=== PATIENT | male | born 1950 | race Two or more races ===

== ENCOUNTER 2025-03-15 13:43 | Inpatient (IN) | payer OTHER ==
[~2025-03-15] VITALS: Ht 170.2 cm; Wt 50.4 kg
--- NOTE | 2025-03-15 14:10 | ED.PDOC ---
HPI (NEURO) HPI Comments This is a 74 year old male BRYA presenting to the ED with chief complaint of syncopal episode/seizure like activity. EMS reports that the patient had been in [place] when he was witnessed to have had a syncopal episode along with an associated episode of "seizure-like activity," lasting 10 minutes. EMS relays that when they arrived, the patient was awake and his BG was reading 53 on scene. Patient states they provided D10 to the patient on route with his BG going up to the 200s. Patient notes he felt dizzy when in the store and that is when he had passed out. Patient denies any head injury, chest pain, SOB, numbness, weakness, tingling, nausea, vomiting, or fever. Chief Complaint: Syncope Time Seen by MD: 14:07 Reviewed Notes: Nurses Notes, Medications, Allergies Information Source: Patient Mode of Arrival: EMS Severity: Moderate Headache Severity: None Timing: Hours Duration: Minutes Prehospital treatment: None Seizure Quality: Twitching, Single Episodes Seizure Location: Generalized Onset: At rest Circumstances: Spontaneous Symptoms: Syncope Past Medical History PAST MEDICAL HISTORY: HTN Surgical History: Denies all surgeries Family History Family History: Reviewed,noncontributory to illness Social History Smoker: Non-Smoker Alcohol: Denies ETOH Use Drugs: Denies Drug Use Lives In: Home Constitutional: denies: chills, diaphoresis, fatigue, fever, malaise, sweats, weakness, others EENTM: denies: blurred vision, double vision, ear bleeding, ear discharge, ear drainage, ear pain, ear ringing, eye pain, eye redness, hearing loss, mouth pain, mouth swelling, nasal discharge, nose bleeding, nose congestion, nose pain, photophobia, tearing, throat pain, throat swelling, voice changes, others Respiratory: denies: cough, hemoptysis, orthopnea, SOB at rest, shortness of breath, SOB with excertion, stridor, wheezing, others Cardiovascular: reports: syncope; denies: chest pain, dizzy spells, diaphoresis, Dyspnea on exertion, edema, irregular heart beat, left arm pain, lightheadedness, palpitations, PND, others Gastrointestinal: denies: abdomen distended, abdominal pain, blood streaked bowels, constipated, diarrhea, dysphagia, difficulty swallowing, hematemesis, melena, nausea, poor appetite, poor fluid intake, rectal bleeding, rectal pain, vomiting, others Genitourinary: denies: burning, dysuria, flank pain, frequency, hematuria, incontinence, penile discharge, penile sore, pain, testicle pain, testicle swelling, urgency, others Neurological: reports: dizziness, seizure; denies: fainting, headache, left sided numbness, left sided weakness, numbness, paresthesia, pre-existing deficit, right sided numbness, right sided weakness, speech problems, tingling, tremors, weakness, others Musculoskeletal: denies: back pain, gout, joint pain, joint swelling, muscle pain, muscle stiffness, neck pain, others Integumetry: denies: bruises, change in color, change in hair/nails, dryness, laceration, lesions, lumps, rash, wounds, others Allergic/Immunocompromised: denies: Difficulty Healing, Frequent Infections, Hives, Itching, others Hematologic/Lymphatic: denies: anemia, blood clots, easy bleeding, easy bruising, swollen glands, others Endocrine: denies: excessive hunger, excessive sweating, excessive thirst, excessive urination, flushing, intolerance to cold, intolerance to heat, unexplained weight gain, unexplained weight loss, others Psychiatric: denies: anxiety, bipolar disorder, depression, hopeless, panic disorder, schizophrenia, sleepless, suicidal, others All Other Systems: Reviewed and Negative Physical Exam General Appearance: Moderate Distress HEENT: Normal ENT Inspection, Pharynx Normal, TMs Normal Neck: Full Range of Motion, Non-Tender, Normal, Normal Inspection Respiratory: Chest Non-Tender, Lungs Clear, No Accessory Muscle Use, No Respiratory Distress, Normal Breath Sounds Cardiovascular: No Edema, No JVD, No Murmur, No Gallop, Normal Peripheral Pulses, Regular Rate/Rhythm Breast Exam: Deferred Gastrointestinal: No Organomegaly, Non Tender, No Pulsatile Mass, Normal Bowel Sounds, Soft Genitalia: Deferred Pelvic: Deferred Rectal: Deferred Extremities: No calf tenderness, Normal capillary refill, No pedal edema Musculoskeletal : Apperance: Normal 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 Was a procedure done?: No Differential Diagnosis (SZ) Seizure: Psychogenic Seizure, CVA/TIA, Syncope, Other (Seizure) X-Ray, Labs, Meds, VS Vital Signs Date Time Temp Pulse Resp B/P (MAP) Pulse Ox O2 Delivery O2 Flow Rate FiO2 03/15/25 16:30 97.9 90 18 129/86 (100) 95 97.9 03/15/25 14:13 105 18 95 Room Air 03/15/25 14:13 98.3 105 18 131/72 (91) 95 98.3 03/15/25 14:09 110 03/15/25 13:53 98.2 102 16 156/86 (109) 9 98.2 03/15/25 13:47 110 Lab Test 03/15/25 14:16 03/15/25 14:08 Range/Units Urine Opiates Screen Neg NEGATIVE Urine Fentanyl Screen Neg NEGATIVE Urine Barbiturates Screen Neg NEGATIVE Urine Phencyclidine Screen Neg NEGATIVE Urine Amphetamines Screen Neg NEGATIVE Urine Benzodiazepines Screen Neg NEGATIVE Urine Cocaine Screen Neg NEGATIVE Urine Cannabinoids Screen Neg NEGATIVE White Blood Count 5.3 4.4-10.8 10^3/uL Red Blood Count 4.50 4.5-5.90 10^6/uL Hemoglobin 14.8 13.5-17.5 g/dL Hematocrit 42.8 41.0-53.0 % Mean Corpuscular Volume 95.2 80.0-100.0 fL Mean Corpuscular Hemoglobin 33.0 H 28.0-32.0 pg Mean Corpuscular Hemoglobin Concent 34.7 32.0-36.0 g/dL Red Cell Distribution Width 13.5 11.8-14.3 % Platelet Count 218 140-450 10^3/uL Mean Platelet Volume 7.4 6.9-10.8 fL Neutrophils (%) (Auto) 70.5 37.0-80.0 % Lymphocytes (%) (Auto) 21.0 10.0-50.0 % Monocytes (%) (Auto) 6.4 0.0-12.0 % Eosinophils (%) (Auto) 1.5 0.0-7.0 % Basophils (%) (Auto) 0.6 0.0-2.0 % Neutrophils # (Auto) 3.8 1.6-8.6 10 ^3/uL Lymphocytes # (Auto) 1.1 0.4-5.4 10 ^3/uL Monocytes # (Auto) 0.3 0-1.3 10 ^3/uL Eosinophils # (Auto) 0.1 0-0.8 10 ^3/uL Basophils # (Auto) 0 0-0.2 10 ^3/uL Nucleated Red Blood Cells 0.1 % Sodium Level 138 136-145 mmol/L Potassium Level 3.2 L 3.5-5.1 mmol/L Chloride Level 105 98-107 mmol/L Carbon Dioxide Level 25 20-31 mmol/L Anion Gap 8 5-15 Blood Urea Nitrogen 9 9-23 mg/dL Creatinine 0.88 0.700-1.30 mg/dL Glomerular Filtration Rate Calc 91 >90 mL/min BUN/Creatinine Ratio 10.2 10.0-20.0 Serum Glucose 192 H 74-106 mg/dL Calcium Level 9.5 8.7-10.4 mg/dL Plasma/Serum Blood Alcohol < 3.0 <10 mg/dL CT Head indicates: 1. No intracranial hemorrhage or mass effect. 2. [id number] chronic microvascular ischemic changes The CBC is within normal limits The chemistry panel is within normal limits The alcohol level is negative We are not sure if the patient had a seizure. It seems that the patient may have had autonomic dysfunction as well as an episode of syncope The patient's have had some diastolic dysfunction that may have caused him to have the syncope Images Reviewed?: Images reviewed and evaluated by me Time of 1ST Reevaluation: 19:15 Reevaluation 1ST: Improved Patient Education/Counseling: Diagnosis, Treatment, Prognosis Family Education/Counseling: No Family Present Additional Information Reviewed patient's previous visit(s): None The following tests were ordered, and results were reviewed by me: CBC, BMP, UDS, EKG, ETOH, CT Head Additional information was gathered from interviewing the following independent historian: EMS I reviewed and agreed with the following test results read by other provider: CT Heaa I discussed treatments and results with medical personnel and: Patient Comprehensive systems review obtained and negative except for what is stated in the HPI. Departure 1 Departure Time of Disposition: 19:18 Impression: Primary Impression: Episode of syncope Qualified Codes: R55 - Syncope and collapse Additional Impressions: Generalized weakness Diastolic heart failure Qualified Codes: I50.31 - Acute diastolic (congestive) heart failure Disposition: ADMITTED INPATIENT Admit to: Tele Condition: Fair Critical Care Note Critical Care Time?: Yes (45 min-critical care time only) Stability Stability form required: Yes Unstable for transfer: Telemetry monitoring (Telemetry monitoring required), ED Physician Assesment (Clinical assesment) Heart Score Heart Score: Heart Score Response (Comments) Value History Moderate Suspicious 1 EKG Repolarization Disturb 1 Age >65 2 Risk Factors 1 or 2 risk factors 1 Troponin Normal limit 0 Total 5 I personally scribed for LUIS WINSTON MD ([email or web address]) on 03/15/25 at 14:09. Electronically submitted by Reed Ulrich ([email or web address]). I personally scribed for LUIS WINSTON MD ([email or web address]) on 03/15/25 at 15:31. Electronically submitted by Reed Ulrich ([email or web address]). LUIS WINSTON MD Mar 15, 2025 14:09
[2025-03-15 14:16] LABS: Basophils # (auto) 0 10 ^3/uL (0-0.2); Basophils % (auto) 0.6 % (0.0-2.0); Eosinophils # (auto) 0.1 10 ^3/uL (0-0.8); Eosinophils % (auto) 1.5 % (0.0-7.0); Hematocrit 42.8 % (41.0-53.0); Hemoglobin 14.8 g/dL (13.5-17.5); Lymphocytes # (auto) 1.1 10 ^3/uL (0.4-5.4); Mean Corpuscular Hgb Conc. 34.7 g/dL (32.0-36.0); Mean Corpuscular Volume 95.2 fL (80.0-100.0); Monocytes # (auto) 0.3 10 ^3/uL (0-1.3); Monocytes % (auto) 6.4 % (0.0-12.0); Neutrophils # (auto) 3.8 10 ^3/uL (1.6-8.6); Neutrophils % (auto) 70.5 % (37.0-80.0); Nucleated Red Blood Cells % 0.1 %; Platelet Count (auto) 218 10^3/uL (140-450); Red Cell Distribution Width 13.5 % (11.8-14.3); White Blood Cell 5.3 10^3/uL (4.4-10.8)
[2025-03-15 14:33] LABS: Chloride 105 mmol/L (98-107); Sodium 138 mmol/L (136-145)
[2025-03-15 14:34] LABS: Anion Gap 8 (5-15); Calcium 9.5 mg/dL (8.7-10.4); Carbon Dioxide 25 mmol/L (20-31)
[2025-03-15 14:36] LABS: Potassium 3.2 mmol/L (3.5-5.1)
[2025-03-15 14:39] LABS: BUN/Creatinine Ratio 10.2 (10.0-20.0); Blood Urea Nitrogen 9 mg/dL (9-23)
[2025-03-15 14:40] LABS: Blood Alcohol < 3.0 mg/dL (<10); Glucose 192 mg/dL (74-106)
--- NOTE | 2025-03-15 14:53 | DVH ---
CT HEAD WITHOUT CONTRAST Indication: Possible 10 minutes seizure EXAM DATE: 03/15/2025 02:19 PM COMPARISON: None TECHNIQUE: CT of the head without intravenous contrast. RADIATION DOSE: CTDIvol: 51.12 mGy, DLP: 905.39 mGy*cm FINDINGS: There is no intracranial hemorrhage. There is no extra-axial fluid, mass, mass effect or midline shif t. The ventricles are midline and normal in size. Basilar cisterns are patent. [id number] periv entricular and subcortical white matter chronic microvascular ischemic changes. The paranasal sinuses and mastoids are well-pneumatized. Imaged portion of the orbits are unremarkabl e. IMPRESSION: 1. No intracranial hemorrhage or mass effect. 2. Bkkr-wg-[id number] chronic microvascular ischemic changes
[2025-03-15 18:09] LABS: Amphetamine Screen, Urine Neg (NEGATIVE); Barbiturate Scree,Urine Neg (NEGATIVE); Benzodiazephine Screen, Urine Neg (NEGATIVE); Cannabinoid Screen, Urine Neg (NEGATIVE); Cocaine Screen, Urine Neg (NEGATIVE); Opiate Scree,Urine Neg (NEGATIVE); Phencyclidine Screen, Urine Neg (NEGATIVE)
[2025-03-15] MEDS ORDERED: NITROGLYCERIN 0.4 MG SL TAB SL PRN (23:15)
[2025-03-15] MEDS ORDERED: ACETAMINOPHEN 325 MG TAB PO PRN (23:15)
[2025-03-15] MEDS ORDERED: DOCUSATE SOD 100 MG CAP PO PRN (23:15)
[2025-03-15] MEDS ORDERED: ONDANSETRON HCL 4 MG/2 ML VIAL IV PRN (23:15)
[2025-03-15] MEDS ORDERED: MORPHINE SULFATE INJ 2 MG/ml SYRG IV PRN ×2 (23:15)
[2025-03-15 23:35] LABS: Urine Bacteria None Seen /hpf (None Seen)
[2025-03-15] MEDS ORDERED: MORPHINE SULFATE 4 MG/ML SYR/VIAL IV PRN ×2 (23:45)
--- NOTE | 2025-03-15 23:46 | DVHHPRES ---
History of Present Illness Resident Creating Document: STANLEY DIAZ RESIDENT History of Present Illness Mr. Prasad, a 74-year-old male with a history of hypertension was brought in by ambulance after a syncopal episode with seizure-like activity lasting about 10 minutes, witnessed in a store. EMS found him alert with a blood glucose of 53, which improved to the 200s after D10 administration. The patient reported dizziness prior to the event and denied trauma or other symptoms. Differential diagnoses included psychogenic seizure, CVA/TIA, syncope, seizure disorder, and hypoglycemia. CT head showed no acute findings but did reveal chronic microvascular ischemic changes. Labs, including CBC, chemistry panel, and alcohol level, were normal. The episode may be related to autonomic or diastolic dysfunction, and the patient improved on reevaluation. Patient do not follow with a PCP. Cardiovascular: HTN Past Surgical History: None Family History: None, Other Smoke: No ALCOHOL: none Drugs: None Lives: with Family (home) Domestic Violence: Neg Review of Systems Constitutional: No: Fever, Chills, Sweats, Weakness, Malaise, Other Eyes: No: Pain, Vision change, Conjunctivae inflammation, Eyelid inflammation, Other, Redness ENT: No: Ear pain, Ear discharge, Nose pain, Nose discharge, Nose congestion, Mouth pain, Mouth swelling, Throat pain, Throat swelling, Other Respiratory: No: Cough, Dry, Shortness of breath, SOB with excertion, Wheezing, Hemoptysis, Pleuritic Pain, Sputum, Wheezing, Other Cardiovascular: No: Chest Pain, Palpitations, Orthopnea, Paroxysmal Noc. Dyspnea, Edema, Lt Headedness, Other Gastrointestinal: No: Nausea, Vomiting, Abdominal Pain, Diarrhea, Constipation, Melena, Hematochezia, Other Genitourinary: No Dysuria, No Frequency, No Incontinence, No Hematuria, No Retention, No Other Musculoskeletal: No: other, neck pain, shoulder pain, arm pain, back pain, hand pain, leg pain, foot pain Skin: No: Rash, Lesions, Jaundice, Bruising, Other Neurological: Confusion, Seizures, Other (syncopy); No: Weakness, Numbness, Inc oordination, Change in speech Allergies: Coded Allergies: NO KNOWN ALLERGIES (Unverified , 03/15/25) Medications Current Medications Medications Dose Ordered Sig/Yelitza Route Start Time Stop Time Status Last Admin Dose Admin Ondansetron HCl 4 mg Q4HP PRN IV 03/15/25 23:15 UNV Docusate Sodium 100 mg BIDPRN PRN PO 03/15/25 23:15 UNV Acetaminophen 650 mg Q6HP PRN PO 03/15/25 23:15 UNV Morphine Sulfate 2 mg Q4HPRN PRN IV 03/15/25 23:15 UNV Nitroglycerin 0.4 mg Q5MINP PRN SL 03/15/25 23:15 UNV Morphine Sulfate 2 mg Q30M PRN IV 03/15/25 23:15 UNV Exam Vital Signs Vital Signs Date Time Temp Pulse Resp B/P (MAP) Pulse Ox O2 Delivery O2 Flow Rate FiO2 03/15/25 16:30 97.9 90 18 129/86 (100) 95 97.9 03/15/25 14:13 Room Air General Appearance: Alert, Oriented X3, Cooperative, No acute distress HEENT: Atraumatic, PERRLA, EOMI, Mucous membr. moist/pink Respiratory: Clear to auscultation, Normal air movement Cardiovascular: Regular rate, Normal S1, Normal S2, No murmurs, Gallops, Rubs Abdominal: Normal bowel sounds, Soft, No tenderness, No hepatospenomegaly, No m asses Extremities: No clubbing, No cyanosis, No edema, Normal pulses, No tenderness/swelling Skin: No rashes, No breakdown, No significant lesion Neuro: Normal gait, Normal speech, Strength at 5/5 X4 ext, Normal tone, Sensation intact, Cranial nerves 3-12 NL, Reflexes 2+ Psych/Mental Status: Mental status NL, Mood NL Labs/Xrays Labs Test 03/15/25 23:31 03/15/25 14:16 03/15/25 14:08 Range/Units Urine Opiates Screen Neg NEGATIVE Urine Fentanyl Screen Neg NEGATIVE Urine Barbiturates Screen Neg NEGATIVE Urine Phencyclidine Screen Neg NEGATIVE Urine Amphetamines Screen Neg NEGATIVE Urine Benzodiazepines Screen Neg NEGATIVE Urine Cocaine Screen Neg NEGATIVE Urine Cannabinoids Screen Neg NEGATIVE White Blood Count 5.3 4.4-10.8 10^3/uL Red Blood Count 4.50 4.5-5.90 10^6/uL Hemoglobin 14.8 13.5-17.5 g/dL Hematocrit 42.8 41.0-53.0 % Mean Corpuscular Volume 95.2 80.0-100.0 fL Mean Corpuscular Hemoglobin 33.0 H 28.0-32.0 pg Mean Corpuscular Hemoglobin Concent 34.7 32.0-36.0 g/dL Red Cell Distribution Width 13.5 11.8-14.3 % Platelet Count 218 140-450 10^3/uL Mean Platelet Volume 7.4 6.9-10.8 fL Neutrophils (%) (Auto) 70.5 37.0-80.0 % Lymphocytes (%) (Auto) 21.0 10.0-50.0 % Monocytes (%) (Auto) 6.4 0.0-12.0 % Eosinophils (%) (Auto) 1.5 0.0-7.0 % Basophils (%) (Auto) 0.6 0.0-2.0 % Neutrophils # (Auto) 3.8 1.6-8.6 10 ^3/uL Lymphocytes # (Auto) 1.1 0.4-5.4 10 ^3/uL Monocytes # (Auto) 0.3 0-1.3 10 ^3/uL Eosinophils # (Auto) 0.1 0-0.8 10 ^3/uL Basophils # (Auto) 0 0-0.2 10 ^3/uL Nucleated Red Blood Cells 0.1 % Plasma/Serum Blood Alcohol < 3.0 <10 mg/dL Assessment/Plan Assessment/Plan Assessment: # Syncopal episode # seizure/seizure-like activity witnessed 10 minutes # hypoglycemic episode with a BG of 53 # mild encephalopathy, improved , likely nontoxic toxic panel negative. # essential Hypertensive # possible TIA, workup in progress. # ruled out acute hemorrhagic stroke with a NC CT # Possible autonomic dysfunction # cardiac causes of syncope, possible undetected structural /rhythm disorder # mechanical fall without signs of fracture or severe trauma # sinus tachycardia at presentation # LVH likely underlying undetected hypertensive heart disease # Medical non adherence, poor medical follow up. # Psychogenic seizure to rule out # Mild hypokalemia 3.2 Plan: # Unlikely a seizure disorder, we will wait for further evaluation and imaging along with neurology input for considering a standing Keppra dose. As needed IV Ativan for seizure cessation. # close monitoring in hospital, neuro checks, telemetry with fall precaution # NPO for now evaluated for swallow eval # IV fluid with the D5 and LR to maintain BG 140-180 mg per dL with avoid hypoglycemia # neurology consult, MRI pending, check for lactate and CK # possible TIA, aspirin and atorvastatin to continue, TTE, carotid Doppler, orthostatic vitals and differential arm blood pressure to check, CXR pending. # Wells Score for PE 1.5 low: given tachycardia and syncope D-dimer and DVT eight to rule out. Troponin to rule out cardiac risks with HbA1C, TSH and Lipid profile. # Outpatient needs close follow up with appropriate medical care with establishing care with a PCP. # Replenished with oral potassium, close follow up Code status: Full code, consult care discussed with the bedside with the 39 minutes care plan. Patient is agreeable. Patient is admitted inpatient in telemetry floor with consult pending for neurology. Discussed with Dr. Shaffer. Plan discussed with: Patient My Orders Orders - STANLEY DIAZ RESIDENT Procedure Category Date Status Time Admit ADMIT 03/15/25 Transmitted 23:10 Allergies PAWAN 03/15/25 In Process 23:10 Code Status CODE 03/15/25 Transmitted 23:10 Ondansetron Hcl PHA 03/15/25 In Process (Zofran) 23:15 Docusate Sodium PHA 03/15/25 In Process Capsule (Colace 23:15 Fall Risk Precautions PAWAN 03/15/[address] 23:10 Complete Blood Count LAB 03/16/25 Verified 04:00 Comprehensive LAB 03/16/25 Verified Metabolic Panel 04:00 Npo (Nothing By DIET 03/16/25 Transmitted Mouth) Diet Breakfast Pt Request For Service PT 03/15/25 Logged 23:10 * Swallow Request ST 03/15/25 Transmitted 23:10 Echo 2d Mode Cardiac US 03/15/25 Logged DOP 23:10 Carotid Duplx W Color US 03/15/25 Logged DOP 23:10 Condition: Fair PAWAN 03/15/25 In Process 23:10 Acetaminophen Tablet PHA 03/15/25 In Process (Tylenol Tablet) 23:15 Sequential PAWAN 03/15/25 In Process Compression Device Nitroglycerin PHA 03/15/25 In Process Sublingual (Ntrostat 23:15 Oxygen By Nasal RT 03/15/25 Transmitted Cannula 23:10 Stat Ekg For Chest PAWAN 03/15/25 In Process Pain 23:10 Notify Md Of Changes PAWAN 03/15/25 In Process From Base 23:10 Field Contractor For PAWAN 03/15/25 In Process 24 Hours 23:10 Emergency Dysrhythmia PAWAN 03/15/25 In Process Protocol 23:10 Rhythm Strips Once PAWAN 03/15/25 In Process Every Shift 23:10 Comprehensive LAB 03/15/25 In Process Metabolic Panel 23:19 Thyroid Stimulating LAB 03/15/25 In Process Hormone 23:19 Urinalysis LAB 03/15/25 In Process 23:19 Chest Xray 1 View XY 03/15/25 Logged 23:19 Orthostatic Vital ED NURSING 03/15/25 Transmitted Signs Communication Order ORDERS 03/15/25 Transmitted 23:19 D5w/Lactated Ringers PHA 03/15/25 In Process (D5wlr) 23:30 Aspirin Tablet PHA 03/15/25 In Process 23:30 Atorvastatin (Lipitor) PHA 03/15/25 In Process 23:30 Brain Head Wo Contrast MRI 03/15/25 Logged 23:23 * Neurology Consult CONS 03/15/25 Transmitted 23:23 D-Dimer LAB 03/15/25 In Process 23:26 Bilat Lower Dvt US 03/15/25 Logged 23:26 Creatine Kinase LAB 03/15/25 In Process 23:26 Lactic Acid W/ Reflex LAB 03/15/25 Logged Order 23:26 Morphine Sulfate PHA 03/15/25 In Process Injection 23:45 Morphine Sulfate PHA 03/15/25 In Process Injection 23:45 Troponin-I Hs LAB 03/15/25 Logged 23:35 Lipid Panel LAB 03/15/25 Logged 23:39 Seizure Precautions PAWAN 03/15/[address] 23:41 Seizure Precautions ED NURSING 03/15/25 Transmitted Date of Service: Mar 15, 2025 Billing Provider: MEL SHAFFER MD Common Visit Codes: 37284-[id number] INP/OBS CARE (HIGH) Secondary Visit Codes: 32717-[id number] CARE PLAN 30 MINUTES STANLEY DIAZ RESIDENT Mar 15, 2025 23:46
[2025-03-16] VITALS (8 sets, daily range): BP systolic 111–134; BP diastolic 58–89; PULSE 66–115; RESP 16–19; TEMP 97.9–98.7; O2SAT 95–99
[2025-03-16 00:05] LABS: Urine Blood Negative /uL (Negative); Urine Clarity Ex.Turbid (Clear); Urine Color Yellow (Yellow); Urine Mucus FEW (None Seen); Urine Protein, UAD TRACE (Negative); Urine Specific Gravity 1.025 (1.001-1.035); Urine Squamous Epithelial Cell None Seen /hpf (<5); Urine Urobilinogen Normal (Negative); Urine WBC 1 /HPF (0-3); Urine pH 5.5 (5.0-9.0)
[2025-03-16 00:10] LABS: Alanine Aminotransferase 15 U/L (7-40); Albumin 4.4 g/dL (3.2-4.8); Alkaline Phosphatase 93 U/L (46-116); Anion Gap 12 (5-15); Aspartate Aminotransferase 25 U/L (13-40); BUN/Creatinine Ratio 9.9 (10.0-20.0); Bilirubin, Total 0.6 mg/dL (0.2-1.0); Blood Urea Nitrogen 9 mg/dL (9-23); Calcium 9.1 mg/dL (8.7-10.4); Carbon Dioxide 22 mmol/L (20-31); Chloride 103 mmol/L (98-107); Sodium 137 mmol/L (136-145); Total Protein 7.2 g/dL (5.7-8.2)
[2025-03-16 00:12] LABS: Glucose 190 mg/dL (74-106); Potassium 3.3 mmol/L (3.5-5.1)
[2025-03-16 00:16] LABS: Triglycerides 77 mg/dL (< 150)
[2025-03-16 00:17] LABS: LDL Cholesterol 95 mg/dL (< 100)
[2025-03-16 00:18] LABS: Cholesterol 170 mg/dL (< 200); HDL Cholesterol 55 mg/dL (40-59)
--- NOTE | 2025-03-16 00:46 | DVH ---
Bilateral lower extremity venous duplex Clinical History: TACHY Comparison: None Technique: Duplex Doppler evaluation of the deep venous systems of both lower extremities from the common femora l veins to the popliteal veins including color Doppler and spectral/pulsed waveform analysis was perf ormed. Findings: RIGHT SIDE: The common femoral vein demonstrates appropriate compressibility and waveform variability. There is compressibility/patency of the great saphenous vein at the proximal thigh. The femoral vein demonstrates appropriate compressibility and waveform variability. The deep femoral vein demonstrates appropriate compressibility and waveform variability. The popliteal vein demonstrates appropriate compressibility and waveform variability. There is normal compressibility at the tibioperoneal trunk. LEFT SIDE: The common femoral vein demonstrates appropriate compressibility and waveform variability. There is compressibility/patency of the great saphenous vein at the proximal thigh. The femoral vein demonstrates appropriate compressibility and waveform variability. The deep femoral vein demonstrates appropriate compressibility and waveform variability. The popliteal vein demonstrates appropriate compressibility and waveform variability. There is normal compressibility at the tibioperoneal trunk. Impression: 1. No right or left femoropopliteal venous thrombosis.
--- NOTE | 2025-03-16 01:07 | DVH ---
CHEST RADIOGRAPH Indication: rule out aspiration or intrathoracic pathology Technique: Single frontal view of the chest was obtained Comparison: None FINDINGS: Lines and Tubes: None Lungs: Clear Pleura: No effusion. No pneumothorax. Cardiomediastinal contours: Unremarkable Bones: Unremarkable IMPRESSION: Clear lungs. Likely artifact overlying the right lower lung zone.
--- NOTE | 2025-03-16 02:46 | DVH ---
Carotid Duplex Clinical History: rule out carotid stenosis in the picture of ischemic changes Comparison: None Technique: Duplex Doppler evaluation of the extracranial carotid and vertebral arteries including color Doppler and spectral/pulsed waveform analysis was performed. Findings: RIGHT SIDE: The peak systolic velocities are 51 cm/s in the CCA, 63 cm/s in the ICA. The ICA/CCA ratio is 1.2. The external carotid artery is patent with peak systolic velocity of 44 cm/s proximally. There is appropriate antegrade flow in the right vertebral artery. LEFT SIDE: The peak systolic velocities are 46 cm/s in the CCA, 98 cm/s in the ICA. The ICA/CCA ratio is 2.1. The external carotid artery is patent with peak systolic velocity of 32 cm/s proximally. There is appropriate antegrade flow in the left vertebral artery. IMPRESSION: Less than 50% stenosis of bilateral carotid artery systems secondary to calcific plaque at the bilate ral carotid bulbs. Reference: Radiology 2003; 229:340-346 Normal ICA PSV is <125 cm/sec and no plaque or intimal thickening is visible sonographically addition al criteria include ICA/CCA PSV ratio <2.0 and ICA EDV <40 cm/sec <50% ICA stenosis ICA PSV is <125 cm/sec and plaque or intimal thickening is visible sonographically additional criteria include ICA/CCA PSV ratio <2.0 and ICA EDV <40 cm/sec 50-69% ICA stenosis ICA PSV is 125-230 cm/sec and plaque is visible sonographically additional criter ia include ICA/CCA PSV ratio of 2.0-4.0 and ICA EDV of 40-100 cm/sec 70% ICA stenosis but less than near occlusion ICA PSV is >230 cm/sec and visible plaque and luminal narrowing are seen at siegel-scale and color Doppler ultrasound (the higher the Doppler parameters lie above the threshold of 230 cm/sec, the greater the likelihood of severe disease) additional criteria include ICA/CCA PSV ratio >4 and ICA EDV >100 cm/sec
[2025-03-16] MEDS: ASPirin 81 mg TAB PO SCH (03:52)
[2025-03-16] MEDS: ATORVASTATIN 20 MG TAB PO SCH (03:53)
[2025-03-16] MEDS: POTASSIUM EFFERVESENT TAB 25 MEQ PO ONE (03:53)
[2025-03-16] MEDS: D5W/LACTATED RINGERS 1,000 ML IV ONE (03:59)
[2025-03-16 06:19] LABS: Basophils # (auto) 0 10 ^3/uL (0-0.2); Basophils % (auto) 0.7 % (0.0-2.0); Eosinophils # (auto) 0.1 10 ^3/uL (0-0.8); Eosinophils % (auto) 2.6 % (0.0-7.0); Hematocrit 41.9 % (41.0-53.0); Hemoglobin 14.9 g/dL (13.5-17.5); Lymphocytes # (auto) 1.3 10 ^3/uL (0.4-5.4); Lymphocytes % (auto) 24.4 % (10.0-50.0); Mean Corpuscular Hemoglobin 33.4 pg (28.0-32.0); Mean Corpuscular Hgb Conc. 35.5 g/dL (32.0-36.0); Monocytes # (auto) 0.5 10 ^3/uL (0-1.3); Neutrophils # (auto) 3.5 10 ^3/uL (1.6-8.6); Neutrophils % (auto) 63.3 % (37.0-80.0); Nucleated Red Blood Cells % 0.3 %; Platelet Count (auto) 211 10^3/uL (140-450); Red Blood Cells 4.46 10^6/uL (4.5-5.90); Red Cell Distribution Width 13.3 % (11.8-14.3); White Blood Cell 5.5 10^3/uL (4.4-10.8)
[2025-03-16 06:43] LABS: Alanine Aminotransferase 16 U/L (7-40); Albumin 4.3 g/dL (3.2-4.8); Alkaline Phosphatase 96 U/L (46-116); Anion Gap 8 (5-15); Aspartate Aminotransferase 24 U/L (13-40); BUN/Creatinine Ratio 13.4 (10.0-20.0); Blood Urea Nitrogen 9 mg/dL (9-23); Calcium 9.9 mg/dL (8.7-10.4); Carbon Dioxide 27 mmol/L (20-31); Chloride 106 mmol/L (98-107); Glucose 92 mg/dL (74-106); Potassium 3.6 mmol/L (3.5-5.1); Sodium 141 mmol/L (136-145); Total Protein 6.7 g/dL (5.7-8.2)
[2025-03-16 06:46] LABS: Bilirubin, Total 0.8 mg/dL (0.2-1.0)
--- NOTE | 2025-03-16 08:44 | DVH ---
MRI BRAIN HEAD WO CONTRAST INDICATION: rule out organic structural brain pathologies EXAM DATE: 03/16/2025 08:05 AM COMPARISON: None PROCEDURE: Using a 1.5 Yohana scanner, multisequence multiplanar imaging of the brain was obtained. FINDINGS: The brainshows normal morphology and signal characteristics. No abnormal T2 hyperintensity, diffusion restriction, or susceptibility hypointensity is present. The ventricles are normal in size . The midline structures are intact. The major intracranial flow voids are present. The aerated space s are normal. The orbital contents and extracranial soft tissues appear normal. IMPRESSION: Scattered nonspecific white matter changes are visualized. Otherwise unremarkable MRI findings of the brain.
--- NOTE | 2025-03-16 18:08 | DVHPN2 ---
Subjective I am assuming the care of the patient from today onwards. Patient is Beninese speaker. [facility] INTERNET AND E BUSINESS PROJECT MANAGER helped us in interpreting the Beninese. Patient is currently denies any known seizure disorder. Changes from previous H/P or p: No Changes Eyes: No Pain, No Vision change, No Conjunctivae inflammation, No Eyelid inflammation, No Other, No Redness ENT: No Ear pain, No Ear discharge, No Nose pain, No Nose discharge, No Nose congestion, No Mouth pain, No Mouth swelling, No Throat pain, No Throat swelling, No Other Cardiovascular: No Chest Pain, No Palpitations, No Orthopnea, No Paroxysmal Noc. Dyspnea, No Edema, No Lt Headedness, No Other Respiratory: No Cough, No Dry, No Shortness of breath, No SOB with excertion, No Wheezing, No Hemoptysis, No Pleuritic Pain, No Sputum, No Other Gastrointestinal: No Nausea, No Vomiting, No Abdominal Pain, No Diarrhea, No Constipation, No Melena, No Hematochezia, No Other Genitourinary: No Dysuria, No Frequency, No Incontinence, No Hematuria, No Retention, No Other Musculoskeletal: No other, No neck pain, No shoulder pain, No arm pain, No back pain, No hand pain, No leg pain, No foot pain Skin: No Rash, No Lesions, No Jaundice, No Bruising, No Other Objective Vitals Vital Signs Date Time Temp Pulse Resp B/P (MAP) Pulse Ox O2 Delivery O2 Flow Rate FiO2 03/16/25 17:00 98.4 67 18 129/81 (97) 97 98.4 03/16/25 03:18 Room Air* 0 21 Intake/Output Intake and Output 03/16/25 07:00 Intake Total 60 ml Output Total 150 ml Balance -90 ml Intake Oral 60 ml Output Urine Total 150 ml Exam HEENT pupils are reactive Neck is supple CV is S1-S2 regular rate and rhythm Respiratory are clear GI positive bowel sound Extremity no edema 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 Medications Current Medications Medications Dose Ordered Sig/Yelitza Route Start Time Stop Time Status Last Admin Dose Admin Ondansetron HCl 4 mg Q4HP PRN IV 03/15/25 23:15 Docusate Sodium 100 mg BIDPRN PRN PO 03/15/25 23:15 Acetaminophen 650 mg Q6HP PRN PO 03/15/25 23:15 Nitroglycerin 0.4 mg Q5MINP PRN SL 03/15/25 23:15 Aspirin 81 mg DAILY PO 03/15/25 23:30 03/16/25 10:22 81 MG Atorvastatin Calcium 40 mg HS PO 03/15/25 23:30 Morphine Sulfate 2 mg Q4HPRN PRN IV 03/15/25 23:45 Morphine Sulfate 2 mg Q30M PRN IV 03/15/25 23:45 Laboratory Results Laboratory Tests 03/16/25 05:28 Chemistry Test 03/15/25 23:31 03/16/25 05:28 Albumin 4.4 g/dL (3.2-4.8) 4.3 g/dL (3.2-4.8) Calcium Level 9.1 mg/dL (8.7-10.4) 9.9 mg/dL (8.7-10.4) Total Protein 7.2 g/dL (5.7-8.2) 6.7 g/dL (5.7-8.2) Coagulation Test 03/15/25 23:31 D-Dimer, Quantitative 0.49 mg/L FEU (0.0-0.49) Lipid panel Test 03/15/25 23:31 Cholesterol Level 170 mg/dL (< 200) HDL Cholesterol 55 mg/dL (40-59) Triglycerides Level 77 mg/dL (< 150) LFT Test 03/15/25 23:31 03/16/25 05:28 Alanine Aminotransferase (ALT) 15 U/L (7-40) 16 U/L (7-40) Alkaline Phosphatase 93 U/L (46-116) 96 U/L (46-116) Aspartate Amino Transferase (AST) 25 U/L (13-40) 24 U/L (13-40) Total Bilirubin 0.6 mg/dL (0.2-1.0) 0.8 mg/dL (0.2-1.0) HgA1c, TSH Test 03/15/25 23:31 Hemoglobin A1c 5.0 % A1C (<5.7) Urinalysis Test 03/15/25 14:16 Urine Color Yellow (Yellow) Urine Clarity Ex.turbid (Clear) Urine pH 5.5 (5.0-9.0) Urine Specific [place] 1.025 (1.001-1.035) Urine Protein Trace (Negative) H Urine Ketones Trace (Negative) Urine Blood Negative /uL (Negative) Urine Nitrite Negative (Negative) Urine Bilirubin Negative (Negative) Urine Urobilinogen Normal mg/dL (Negative) Urine Leukocyte Esterase Negative /uL (Negative) Urine RBC 1 /hpf (0 - 3) Urine Microscopic WBC 1 /HPF (0-3) Urine Squamous Epithelial Cells None seen /hpf (<5) Urine Bacteria None seen /hpf (None Seen) Urine Mucus Few (None Seen) Urine Glucose Normal mg/dL (Normal) Assessment/Plan Assessment/Plan 74-year-old male with a no significant past medical history besides hypertension presented to the hospital with syncope episode and questionable seizure-like activities. 1. Syncope rule out structural heart disease rule out any cardiac arrhythmia 2. Seizure-like activities. 3.0Hypoglycemia/hypoglycemic seizures 4. Hypertension 5. Rule out TIA/CVA -neurology consultation, seizure precautions. Plan discussed with: Patient, Other My Orders Orders - CHARLES CLIFFORD MD Procedure Category Date Status Time Cardiac DIET 03/16/25 Transmitted Diet-2gna,Lofat,Lochol Dinner Date of Service: Mar 16, 2025 Billing Provider: CHARLES CLIFFORD MD Common Visit Codes: [id number] INP/OBS CARE(MOD) CHARLES CLIFFORD MD Mar 16, 2025 18:08
--- NOTE | 2025-03-16 18:46 | ECG ---
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
--- NOTE | 2025-03-16 19:19 | DVHSR ---
APPROVED REPORT EXAM: Two-dimensional and M-mode echocardiogram with Doppler and color Doppler. Blood Pressure: 131/74 mmHg INDICATION Rule out structural heart disease RISK FACTORS Height: 5' 7", Weight: 140 DIMENSIONS LVDd5.0 (3.8-5.7cm)LA (2D)3.6 (1.9-4.0cm)Aortic Root3.9 (2.0-3.7cm) LVDs4.4 (2.5-4.0cm)LA (MM) (1.9-4.0cm)Aortic Cusp Exc1.9 (1.5-2.0cm) EF (%) 28.0 (55-70%)Rt. Atrium4.1 (1.9-4.0cm)Asc. Aorta cm IVSd1.0 (0.7-1.1cm)RV (D) (1.8-2.4cm) PWd1.0 (0.7-1.1cm) Mitral Valve MitralMitral Stenosis E wave0.50m/sMV Mean GR.mmHg A wave0.80m/sMV Peak GR.mmHg E/A ratio0.62D MVAcm2 Aortic Valve Aortic ValveAortic Stenosis V10.60m/Isa Mean GR.3mmHg V21.20m/Isa Peak GR.7mmHg LVOT Diameter2.5 (1.8-2.4cm)Doppler AVA2.45cm2 AI P 1/2 Przu295.07ms Pulmonic Valve V20.40m/s Conclusion MODERATE LVH AND MODERATE DEGREE LV DIASTOLIC DYSFUNCTION LV SLIGHTLY DILATED AND IS GLOBALLY HYPOKINETIC LV EF IS 30% AND IS MODERATELY REDUCED SYSTOLIC AND DIASTOLIC LV DYSFUNCTION DYSKINESIS OF IVS MODERATELY DILATED RV MODERATELY CALCIFIED AORTIC LEAFLETS MODERATE DEGREE AORTIC REGURGITATION NORMAL MV,TV AND PV NO EFFUSION
[2025-03-17] VITALS (9 sets, daily range): BP systolic 105–118; BP diastolic 63–74; PULSE 61–89; RESP 16–18; TEMP 36.8; O2SAT 95–98
--- NOTE | 2025-03-17 15:29 | DVHDS2 ---
Discharge Summary Date of Admission Mar 15, 2025 at 23:10 Date of Discharge: Mar 17, 2025 Labs/Diagnostic Data: Laboratory Results Test 03/16/25 05:28 03/15/25 23:54 03/15/25 23:35 03/15/25 23:31 White Blood Count 5.5 10^3/uL (4.4-10.8) Red Blood Count 4.46 10^6/uL (4.5-5.90) Hemoglobin 14.9 g/dL (13.5-17.5) Hematocrit 41.9 % (41.0-53.0) Mean Corpuscular Volume 94.0 fL (80.0-100.0) Mean Corpuscular Hemoglobin 33.4 pg (28.0-32.0) Mean Corpuscular Hemoglobin Concent 35.5 g/dL (32.0-36.0) Red Cell Distribution Width 13.3 % (11.8-14.3) Platelet Count 211 10^3/uL (140-450) Mean Platelet Volume 7.7 fL (6.9-10.8) Neutrophils (%) (Auto) 63.3 % (37.0-80.0) Lymphocytes (%) (Auto) 24.4 % (10.0-50.0) Monocytes (%) (Auto) 9.0 % (0.0-12.0) Eosinophils (%) (Auto) 2.6 % (0.0-7.0) Basophils (%) (Auto) 0.7 % (0.0-2.0) Neutrophils # (Auto) 3.5 10 ^3/uL (1.6-8.6) Lymphocytes # (Auto) 1.3 10 ^3/uL (0.4-5.4) Monocytes # (Auto) 0.5 10 ^3/uL (0-1.3) Eosinophils # (Auto) 0.1 10 ^3/uL (0-0.8) Basophils # (Auto) 0 10 ^3/uL (0-0.2) Nucleated Red Blood Cells 0.3 % Sodium Level 141 mmol/L (136-145) Potassium Level 3.6 mmol/L (3.5-5.1) Chloride Level 106 mmol/L (98-107) Carbon Dioxide Level 27 mmol/L (20-31) Anion Gap 8 (5-15) Blood Urea Nitrogen 9 mg/dL (9-23) Creatinine 0.67 mg/dL (0.700-1.30) Glomerular Filtration Rate Calc 99 mL/min (>90) BUN/Creatinine Ratio 13.4 (10.0-20.0) Serum Glucose 92 mg/dL (74-106) Calcium Level 9.9 mg/dL (8.7-10.4) Total Bilirubin 0.8 mg/dL (0.2-1.0) Aspartate Amino Transferase (AST) 24 U/L (13-40) Alanine Aminotransferase (ALT) 16 U/L (7-40) Alkaline Phosphatase 96 U/L (46-116) Total Protein 6.7 g/dL (5.7-8.2) Albumin 4.3 g/dL (3.2-4.8) Lactic Acid Level 1.3 mmol/L (0.4-2.0) Troponin I High Sensitivity 10 ng/L (</=54) D-Dimer, Quantitative 0.49 mg/L FEU (0.0-0.49) Hemoglobin A1c 5.0 % A1C (<5.7) Triglycerides Level 77 mg/dL (< 150) Cholesterol Level 170 mg/dL (< 200) LDL Cholesterol 95 mg/dL (< 100) HDL Cholesterol 55 mg/dL (40-59) Test 03/15/25 14:16 03/15/25 14:08 Urine Color Yellow (Yellow) Urine Clarity Ex.turbid (Clear) Urine pH 5.5 (5.0-9.0) Urine Specific [place] 1.025 (1.001-1.035) Urine Protein Trace (Negative) Urine Ketones Trace (Negative) Urine Blood Negative /uL (Negative) Urine Nitrite Negative (Negative) Urine Bilirubin Negative (Negative) Urine Urobilinogen Normal mg/dL (Negative) Urine Leukocyte Esterase Negative /uL (Negative) Urine RBC 1 /hpf (0 - 3) Urine Microscopic WBC 1 /HPF (0-3) Urine Squamous Epithelial Cells None seen /hpf (<5) Urine Bacteria None seen /hpf (None Seen) Urine Mucus Few (None Seen) Urine Glucose Normal mg/dL (Normal) Urine Opiates Screen Neg (NEGATIVE) Urine Fentanyl Screen Neg (NEGATIVE) Urine Barbiturates Screen Neg (NEGATIVE) Urine Phencyclidine Screen Neg (NEGATIVE) Urine Amphetamines Screen Neg (NEGATIVE) Urine Benzodiazepines Screen Neg (NEGATIVE) Urine Cocaine Screen Neg (NEGATIVE) Urine Cannabinoids Screen Neg (NEGATIVE) Creatine Kinase 357 U/L (46-171) Thyroid Stimulating Hormone (TSH) 1.47 uIU/mL (0.55-4.78) Plasma/Serum Blood Alcohol < 3.0 mg/dL (<10) Other Laboratory Tests 03/16/25 05:28 Final Diagnosis/Problems List 74-year-old male with a no significant past medical history besides hypertension presented to the hospital with syncope episode and questionable seizure-like activities. 1. Syncope rule out structural heart disease rule out any cardiac arrhythmia 2. Seizure-like activities. 3.0Hypoglycemia/hypoglycemic seizures 4. Hypertension 5. Rule out TIA/CVA Discharge Disposition: Home Discharge Instruct/Medications Diet: Cardiac 2g Na,low cholest Activity: See Comment Activity comment: As per recommendation from Neurology Follow Up/Referral: Follow up with PCP in 1-2 weeks Follow up with the Neurology Dr. Diaz in 1-2 weeks Medications: Resume home medications Discharge Statement: "Patient was advised to return to the ER or call 911 if any headaches, dizziness, shortness of breath, chest pain, abdominal pain, bleeding, fevers, or worsening of medical condition. Patient was counseled about treatment plan, medications, possible side effects, patientverbalized understanding. All questions were answered to the best of my ability. This discharge took greater then 30 minutes in planning, reviewing documentation, counseling the patient, and discussing with other team members." ASSESSMENT ASSESSMENT Assessment 74-year-old male with a no significant past medical history besides hypertension presented to the hospital with syncope episode and questionable seizure-like activities. 1. Syncope rule out structural heart disease rule out any cardiac arrhythmia 2. Seizure-like activities. 3.0Hypoglycemia/hypoglycemic seizures 4. Hypertension 5. Rule out TIA/CVA CHARLES CLIFFORD MD Mar 17, 2025 15:29
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
[2025-03-18] VITALS (8 sets, daily range): BP systolic 100–128; BP diastolic 68–86; PULSE 70–88; RESP 15–20; TEMP 97.3–98.1; O2SAT 92–98
[2025-03-18 10:34] LABS: Hepatitis B Surface Antigen Negative (Negative); Hepatitis C Antibody Negative (Negative)
--- NOTE | 2025-03-18 16:35 | DVHPN2 ---
Subjective I am assuming the care of the patient from today onwards. Patient is Indonesian speaker. [facility] SOLUTION ENGINEER helped us in interpreting the Indonesian. Patient is currently denies any known seizure disorder. Changes from previous H/P or p: No Changes Eyes: No Pain, No Vision change, No Conjunctivae inflammation, No Eyelid inflammation, No Other, No Redness ENT: No Ear pain, No Ear discharge, No Nose pain, No Nose discharge, No Nose congestion, No Mouth pain, No Mouth swelling, No Throat pain, No Throat swelling, No Other Cardiovascular: No Chest Pain, No Palpitations, No Orthopnea, No Paroxysmal Noc. Dyspnea, No Edema, No Lt Headedness, No Other Respiratory: No Cough, No Dry, No Shortness of breath, No SOB with excertion, No Wheezing, No Hemoptysis, No Pleuritic Pain, No Sputum, No Other Gastrointestinal: No Nausea, No Vomiting, No Abdominal Pain, No Diarrhea, No Constipation, No Melena, No Hematochezia, No Other Genitourinary: No Dysuria, No Frequency, No Incontinence, No Hematuria, No Retention, No Other Musculoskeletal: No other, No neck pain, No shoulder pain, No arm pain, No back pain, No hand pain, No leg pain, No foot pain Skin: No Rash, No Lesions, No Jaundice, No Bruising, No Other Objective Vitals Vital Signs Date Time Temp Pulse Resp B/P (MAP) Pulse Ox O2 Delivery O2 Flow Rate FiO2 03/18/25 13:00 98.1 81 16 113/73 (86) 98 98.1 03/18/25 08:00 Room Air* 0 21 Intake/Output Intake and Output 03/18/25 07:00 Intake Total 2290 ml Output Total 800 ml Balance 1490 ml Intake Oral 2290 ml Output Urine Total 800 ml # Voids 3 Exam HEENT pupils are reactive Neck is supple CV is S1-S2 regular rate and rhythm Respiratory are clear GI positive bowel sound 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 Medications Current Medications Medications Dose Ordered Sig/Yelitza Route Start Time Stop Time Status Last Admin Dose Admin Ondansetron HCl 4 mg Q4HP PRN IV 03/15/25 23:15 Docusate Sodium 100 mg BIDPRN PRN PO 03/15/25 23:15 Acetaminophen 650 mg Q6HP PRN PO 03/15/25 23:15 Nitroglycerin 0.4 mg Q5MINP PRN SL 03/15/25 23:15 Aspirin 81 mg DAILY PO 03/15/25 23:30 03/18/25 10:00 81 MG Atorvastatin Calcium 40 mg HS PO 03/15/25 23:30 03/17/25 21:38 40 MG Morphine Sulfate 2 mg Q4HPRN PRN IV 03/15/25 23:45 Morphine Sulfate 2 mg Q30M PRN IV 03/15/25 23:45 Laboratory Results Laboratory Tests 03/16/25 05:28 Urinalysis Test 03/15/25 14:16 Urine Color Yellow (Yellow) Urine Clarity Ex.turbid (Clear) Urine pH 5.5 (5.0-9.0) Urine Specific [place] 1.025 (1.001-1.035) Urine Protein Trace (Negative) H Urine Ketones Trace (Negative) Urine Blood Negative /uL (Negative) Urine Nitrite Negative (Negative) Urine Bilirubin Negative (Negative) Urine Urobilinogen Normal mg/dL (Negative) Urine Leukocyte Esterase Negative /uL (Negative) Urine RBC 1 /hpf (0 - 3) Urine Microscopic WBC 1 /HPF (0-3) Urine Squamous Epithelial Cells None seen /hpf (<5) Urine Bacteria None seen /hpf (None Seen) Urine Mucus Few (None Seen) Urine Glucose Normal mg/dL (Normal) Assessment/Plan Assessment/Plan 74-year-old male with a no significant past medical history besides hypertension presented to the hospital with syncope episode and questionable seizure-like activities. 1. Syncope rule out structural heart disease rule out any cardiac arrhythmia 2. Seizure-like activities. 3.0Hypoglycemia/hypoglycemic seizures 4. Hypertension 5. Rule out TIA/CVA -neurology consultation, seizure precautions. Plan discussed with: Patient Date of Service: Mar 17, 2025 Billing Provider: CHARLES CLIFFORD MD Common Visit Codes: [id number] INP/OBS CARE(MOD) CHARLES CLIFFORD MD Mar 18, 2025 16:35
--- NOTE | 2025-03-18 17:07 | DVHPN2 ---
Subjective I am assuming the care of the patient from today onwards. Patient is Czech speaker. [facility] [employer] helped us in interpreting the Czech. Patient is currently denies any known seizure disorder. Changes from previous H/P or p: No Changes Eyes: No Pain, No Vision change, No Conjunctivae inflammation, No Eyelid inflammation, No Other, No Redness ENT: No Ear pain, No Ear discharge, No Nose pain, No Nose discharge, No Nose congestion, No Mouth pain, No Mouth swelling, No Throat pain, No Throat swelling, No Other Cardiovascular: No Chest Pain, No Palpitations, No Orthopnea, No Paroxysmal Noc. Dyspnea, No Edema, No Lt Headedness, No Other Respiratory: No Cough, No Dry, No Shortness of breath, No SOB with excertion, No Wheezing, No Hemoptysis, No Pleuritic Pain, No Sputum, No Other Gastrointestinal: No Nausea, No Vomiting, No Abdominal Pain, No Diarrhea, No Constipation, No Melena, No Hematochezia, No Other Genitourinary: No Dysuria, No Frequency, No Incontinence, No Hematuria, No Retention, No Other Musculoskeletal: No other, No neck pain, No shoulder pain, No arm pain, No back pain, No hand pain, No leg pain, No foot pain Skin: No Rash, No Lesions, No Jaundice, No Bruising, No Other Objective Vitals Vital Signs Date Time Temp Pulse Resp B/P (MAP) Pulse Ox O2 Delivery O2 Flow Rate FiO2 03/18/25 13:00 98.1 81 16 113/73 (86) 98 98.1 03/18/25 08:00 Room Air* 0 21 Intake/Output Intake and Output 03/18/25 07:00 Intake Total 2290 ml Output Total 800 ml Balance 1490 ml Intake Oral 2290 ml Output Urine Total 800 ml # Voids 3 Exam HEENT pupils are reactive Neck is supple CV is S1-S2 regular rate and rhythm Respiratory are clear GI positive bowel sound Extremity no edema [employer] no motor deficit Medications Current Medications Medications Dose Ordered Sig/Yelitza Route Start Time Stop Time Status Last Admin Dose Admin Ondansetron HCl 4 mg Q4HP PRN IV 03/15/25 23:15 Docusate Sodium 100 mg BIDPRN PRN PO 03/15/25 23:15 Acetaminophen 650 mg Q6HP PRN PO 03/15/25 23:15 Nitroglycerin 0.4 mg Q5MINP PRN SL 03/15/25 23:15 Aspirin 81 mg DAILY PO 03/15/25 23:30 03/18/25 10:00 81 MG Atorvastatin Calcium 40 mg HS PO 03/15/25 23:30 03/17/25 21:38 40 MG Morphine Sulfate 2 mg Q4HPRN PRN IV 03/15/25 23:45 Morphine Sulfate 2 mg Q30M PRN IV 03/15/25 23:45 Laboratory Results Laboratory Tests 03/16/25 05:28 Urinalysis Test 03/15/25 14:16 Urine Color Yellow (Yellow) Urine Clarity Ex.turbid (Clear) Urine pH 5.5 (5.0-9.0) Urine Specific [place] 1.025 (1.001-1.035) Urine Protein Trace (Negative) H Urine Ketones Trace (Negative) Urine Blood Negative /uL (Negative) Urine Nitrite Negative (Negative) Urine Bilirubin Negative (Negative) Urine Urobilinogen Normal mg/dL (Negative) Urine Leukocyte Esterase Negative /uL (Negative) Urine RBC 1 /hpf (0 - 3) Urine Microscopic WBC 1 /HPF (0-3) Urine Squamous Epithelial Cells None seen /hpf (<5) Urine Bacteria None seen /hpf (None Seen) Urine Mucus Few (None Seen) Urine Glucose Normal mg/dL (Normal) Assessment/Plan Assessment/Plan 74-year-old male with a no significant past medical history besides hypertension presented to the hospital with syncope episode and questionable seizure-like activities. 1. Syncope rule out structural heart disease rule out any cardiac arrhythmia 2. Seizure-like activities. 3.Hypoglycemia/hypoglycemic seizures 4. Hypertension 5. Rule out TIA/CVA -neurology consultation appreciated, follow up EEG, seizure precautions. Plan discussed with: Patient Date of Service: Mar 18, 2025 Billing Provider: CHARLES CLIFFORD MD Common Visit Codes: [id number] INP/OBS CARE(MOD) CHARLES CLIFFORD MD Mar 18, 2025 17:07
--- NOTE | 2025-03-18 23:17 | DVHEEG2 ---
Neurology EEG Procedural Note Procedural Note EXAM DATE: 03/18/2025 REFERRING DOCTOR: Dr. Gordon TECHNIQUE: Eighteen channels of EEG, 2 channels of EOG, and 1 channel of EKG were recorded using the International 10/20 system. CLINICAL DATA: The patient was referred for an EEG evaluation for the evidence of seizure disorder. MEDICATIONS: See chart BACKGROUND ACTIVITY: While the patient was awake, the background activity consisted of well regulated 9 Hz rhythmic waveforms, symmetrically distributed over both posterior quadrants and was reactive to eye opening. ACTIVATION: Hyperventilation: Not done Photic Stimulation: Not done Sleep: Not seen IMPRESSION: This is a normal EEG. No focal, lateralized, or epileptiform features are noted. If clinically indicated to rule out a seizure disorder, recommend repeat EEG with sleep deprivation. The EKG channel showed an irregular heart rate of 78 per minutes [place] [address] FEDERICO GORDON MD Mar 18, 2025 23:17
[2025-03-19 05:00] VITALS: BP 108/71; PULSE 88; RESP 18; TEMP 97.8; O2SAT 96
[2025-03-19 08:00] VITALS: PULSE 72
[2025-03-19 08:30] VITALS: BP 107/68; PULSE 77; RESP 16; TEMP 97.2; O2SAT 99
--- NOTE | 2025-03-19 16:21 | DVHDS2 ---
Discharge Summary Date of Admission Mar 15, 2025 at 23:10 Date of Discharge: Mar 19, 2025 Labs/Diagnostic Data: Laboratory Results Test 03/16/25 05:28 03/15/25 23:54 03/15/25 23:35 03/15/25 23:31 White Blood Count 5.5 10^3/uL (4.4-10.8) Red Blood Count 4.46 10^6/uL (4.5-5.90) Hemoglobin 14.9 g/dL (13.5-17.5) Hematocrit 41.9 % (41.0-53.0) Mean Corpuscular Volume 94.0 fL (80.0-100.0) Mean Corpuscular Hemoglobin 33.4 pg (28.0-32.0) Mean Corpuscular Hemoglobin Concent 35.5 g/dL (32.0-36.0) Red Cell Distribution Width 13.3 % (11.8-14.3) Platelet Count 211 10^3/uL (140-450) Mean Platelet Volume 7.7 fL (6.9-10.8) Neutrophils (%) (Auto) 63.3 % (37.0-80.0) Lymphocytes (%) (Auto) 24.4 % (10.0-50.0) Monocytes (%) (Auto) 9.0 % (0.0-12.0) Eosinophils (%) (Auto) 2.6 % (0.0-7.0) Basophils (%) (Auto) 0.7 % (0.0-2.0) Neutrophils # (Auto) 3.5 10 ^3/uL (1.6-8.6) Lymphocytes # (Auto) 1.3 10 ^3/uL (0.4-5.4) Monocytes # (Auto) 0.5 10 ^3/uL (0-1.3) Eosinophils # (Auto) 0.1 10 ^3/uL (0-0.8) Basophils # (Auto) 0 10 ^3/uL (0-0.2) Nucleated Red Blood Cells 0.3 % Sodium Level 141 mmol/L (136-145) Potassium Level 3.6 mmol/L (3.5-5.1) Chloride Level 106 mmol/L (98-107) Carbon Dioxide Level 27 mmol/L (20-31) Anion Gap 8 (5-15) Blood Urea Nitrogen 9 mg/dL (9-23) Creatinine 0.67 mg/dL (0.700-1.30) Glomerular Filtration Rate Calc 99 mL/min (>90) BUN/Creatinine Ratio 13.4 (10.0-20.0) Serum Glucose 92 mg/dL (74-106) Calcium Level 9.9 mg/dL (8.7-10.4) Total Bilirubin 0.8 mg/dL (0.2-1.0) Aspartate Amino Transferase (AST) 24 U/L (13-40) Alanine Aminotransferase (ALT) 16 U/L (7-40) Alkaline Phosphatase 96 U/L (46-116) Total Protein 6.7 g/dL (5.7-8.2) Albumin 4.3 g/dL (3.2-4.8) Hepatitis B Surface Antigen Negative (Negative) Hepatitis C Antibody Negative (Negative) Lactic Acid Level 1.3 mmol/L (0.4-2.0) Troponin I High Sensitivity 10 ng/L (</=54) D-Dimer, Quantitative 0.49 mg/L FEU (0.0-0.49) Hemoglobin A1c 5.0 % A1C (<5.7) Triglycerides Level 77 mg/dL (< 150) Cholesterol Level 170 mg/dL (< 200) LDL Cholesterol 95 mg/dL (< 100) HDL Cholesterol 55 mg/dL (40-59) Test 03/15/25 14:16 03/15/25 14:08 Urine Color Yellow (Yellow) Urine Clarity Ex.turbid (Clear) Urine pH 5.5 (5.0-9.0) Urine Specific [place] 1.025 (1.001-1.035) Urine Protein Trace (Negative) Urine Ketones Trace (Negative) Urine Blood Negative /uL (Negative) Urine Nitrite Negative (Negative) Urine Bilirubin Negative (Negative) Urine Urobilinogen Normal mg/dL (Negative) Urine Leukocyte Esterase Negative /uL (Negative) Urine RBC 1 /hpf (0 - 3) Urine Microscopic WBC 1 /HPF (0-3) Urine Squamous Epithelial Cells None seen /hpf (<5) Urine Bacteria None seen /hpf (None Seen) Urine Mucus Few (None Seen) Urine Glucose Normal mg/dL (Normal) Urine Opiates Screen Neg (NEGATIVE) Urine Fentanyl Screen Neg (NEGATIVE) Urine Barbiturates Screen Neg (NEGATIVE) Urine Phencyclidine Screen Neg (NEGATIVE) Urine Amphetamines Screen Neg (NEGATIVE) Urine Benzodiazepines Screen Neg (NEGATIVE) Urine Cocaine Screen Neg (NEGATIVE) Urine Cannabinoids Screen Neg (NEGATIVE) Creatine Kinase 357 U/L (46-171) Thyroid Stimulating Hormone (TSH) 1.47 uIU/mL (0.55-4.78) Plasma/Serum Blood Alcohol < 3.0 mg/dL (<10) Other Laboratory Tests 03/16/25 05:28 Brief Hx & Hospital Course: 74-year-old male with a no significant past medical history besides hypertension presented to the hospital with syncope episode and questionable seizure-like activities. Patient was eventually admitted monitored on telemetry. Patient underwent CT head which shows no evidence of acute infarct. MRI brain shows no evidence of acute infarct. Patient was ruled out for any seizure-like activity the EEG is negative. Neurology cleared the patient to be discharged. Patient is being discharged under stable condition Condition at Discharge: Stable Final Diagnosis/Problems List 74-year-old male with a no significant past medical history besides hypertension presented to the hospital with syncope episode and questionable seizure-like activities. 1. Syncope rule out structural heart disease rule out any cardiac arrhythmia 2. Seizure-like activities. 3.0Hypoglycemia/hypoglycemic seizures 4. Hypertension 5. Ruled out TIA/CVA Discharge Disposition: Home SNF Discharge Will this Physician continue t: No Discharge Instruct/Medications Diet: Cardiac 2g Na,low cholest Activity: See Comment Activity comment: As per recommendation from Neurology Follow Up/Referral: Follow up with PCP in 1-2 weeks Follow up with the Neurology Dr. Diaz in 1-2 weeks Medications: Resume home medications Discharge Statement: "Patient was advised to return to the ER or call 911 if any headaches, dizziness, shortness of breath, chest pain, abdominal pain, bleeding, fevers, or worsening of medical condition. Patient was counseled about treatment plan, medications, possible side effects, patientverbalized understanding. All questions were answered to the best of my ability. This discharge took greater then 30 minutes in planning, reviewing documentation, counseling the patient, and discussing with other team members." ASSESSMENT ASSESSMENT Assessment 74-year-old male with a no significant past medical history besides hypertension presented to the hospital with syncope episode and questionable seizure-like activities. 1. Syncope rule out structural heart disease rule out any cardiac arrhythmia 2. Seizure-like activities. 3.0Hypoglycemia/hypoglycemic seizures 4. Hypertension 5. Rule out TIA/CVA Date of Service: Mar 19, 2025 Billing Provider: CHARLES CLIFFORD MD Common Visit Codes: [id number] DISCH DAY >30min CHARLES CLIFFORD MD Mar 19, 2025 16:21
== END 2025-03-19 16:50 | disposition home or self-care (01) | DRG 420 ==
LOC: EDBD 13:43 → ER 13:43 → OVERFLOW 23:10 → TELE-CENTR 03-16 18:03
PROVIDERS: ADMIT Internal Medicine; ATTEND Internal Medicine
DX: E11.649 Type 2 diabetes mellitus with hypoglycemia without coma (principal); G93.41 Metabolic encephalopathy; I49.9 Cardiac arrhythmia, unspecified; I11.0 Hypertensive heart disease with heart failure; I50.42 Chronic combined systolic (congestive) and diastolic (congestive) heart failure; G40.909 Epilepsy, unspecified, not intractable, without status epilepticus; I65.23 Occlusion and stenosis of bilateral carotid arteries; E87.6 Hypokalemia; R00.0 Tachycardia, unspecified; E16.2 Hypoglycemia, unspecified; Z91.199 Patient's noncompliance with other medical treatment and regimen due to unspecified reason; V19.88XA Pedal cyclist (driver) (passenger) injured in other specified transport accidents, initial encounter; Y93.89 Activity, other specified; Y92.89 Other specified places as the place of occurrence of the external cause; Y99.8 Other external cause status
CPT/HCPCS: 36415; 70450; 70551; 71045; 80048; 80053; 80061; 80307; 80320; 81001; 82550; 83036; 83605; 84443; 84484; 85025; 85379; 86803; 87340; 93005; 93306; 93886; 93970; 95819; 97110; 97116; 97163; 97530; 99291; G0378